=== PATIENT | female | born 1955 | race Caucasian/White ===

== ENCOUNTER 2019-02-21 12:36 | Outpatient (CLI) | payer BC ==
--- NOTE | 2019-02-21 13:43 | MRI ---
Exam: MRI CERVICAL SPINE WITHOUT CONTRAST: HISTORY: Cervical radiculopathy. Neck pain shooting down the left arm.. COMPARISON: None. FINDINGS: Limited evaluation due to motion degradation. Appropriate T1 marrow signal intensity of the cervical vertebra. No STIR hyperintensity to suggest vertebral body edema or ligamentous injury. Intrinsic T1 and T2 hyperintense focus at C2, compatible with hemangioma. Visualized brain parenchyma, cervicomedullary junction, cervical cord and the upper thoracic cord hav e a normal size and signal intensity C2-C3: No significant central canal stenosis or neural foraminal narrowing. C3-C4: No significant central canal stenosis or neural foraminal narrowing. C4-C5: Minimal central/left paracentral disc bulge. No significant central canal stenosis. Right neur al foramen is patent. Mild left foraminal narrowing due to uncovertebral hypertrophy. C5-C6: Broad-based discussed by complex without significant central canal stenosis. Mild bilateral fo raminal narrowing due to uncovertebral hypertrophy. C6-C7: Broad-based disk-osteophyte complex without significant central canal stenosis. Mild right and moderate left foraminal narrowing C7-T1: No significant central canal stenosis or neural foraminal narrowing. Bilateral perineural slee ve cysts are noted. IMPRESSION: 1. Limited evaluation due to motion degradation. 2. No significant central canal stenosis or neural foraminal narrowing. Varying degrees of neural for aminal stenosis as described above. Transcribed Date/Time: 02/21/2019 1:50 PM
== END 2019-02-21 12:37 | disposition home or self-care (01) ==
LOC: TBSIIMAG 12:36
PROVIDERS: ATTEND Neurological Surgery
DX: M54.12 Radiculopathy, cervical region (principal)
CPT/HCPCS: 72141

== ENCOUNTER 2019-03-09 08:44 | Outpatient (CLI) | payer BC ==
--- NOTE | 2019-03-09 09:24 | RAD ---
CERVICAL SPINE SIX VIEWS: INDICATIONS: Cervical radiculopathy. FINDINGS: The cervical vertebrae maintain height and alignment. Mild to moderate degenerative change noted, wi th disk narrowing and spurring at C6-C7. Mild anterior osteophytes also noted at C5-C6. Mild iron piler ior spondylosis at these levels. Alignment is preserved with flexion and extension. IMPRESSION: There are mild degenerative changes at C5-C6 and C6-C7, as described, more prominent at the C6-C7 lev el. POS: [facility]
== END 2019-03-09 08:45 | disposition home or self-care (01) ==
LOC: TBSIIMAG 08:44
PROVIDERS: ATTEND Neurological Surgery
DX: M47.22 Other spondylosis with radiculopathy, cervical region (principal)
CPT/HCPCS: 72050

== ENCOUNTER 2023-08-04 07:32 | Outpatient (CLI) | payer MEDICARE, OTHER | END 2023-08-04 07:33 | disposition home or self-care (01) | LOC: ULT 07:32 | PROVIDERS: ATTEND Physician Assistant Medical | DX: R74.8 Abnormal levels of other serum enzymes (principal); R79.89 Other specified abnormal findings of blood chemistry; K76.89 Other specified diseases of liver | CPT/HCPCS: 76705 ==

== ENCOUNTER 2025-05-24 14:55 | Outpatient (CLI) | payer MEDICARE, OTHER | END 2025-05-24 14:56 | disposition home or self-care (01) | LOC: SCSMRI 14:55 | PROVIDERS: ATTEND Family Medicine | DX: M50.10 Cervical disc disorder with radiculopathy, unspecified cervical region (principal); M48.02 Spinal stenosis, cervical region | CPT/HCPCS: 72141 ==